=== PATIENT | male | born 1980 | race Two or more races ===

== ENCOUNTER 2017-06-04 18:13 | Emergency (ER) | payer BC ==
--- NOTE | 2017-06-04 21:12 | EDM.PDOC ---
ED HPI GENERAL MEDICAL PROBLEM - General Chief Complaint: Gastrointestinal Problem Stated Complaint: CHEST PAIN Time Seen by Provider: 06/04/17 20:06 Source of Information: Reports: Patient, Family History Limitations: Reports: No Limitations - History of Present Illness INITIAL COMMENTS - FREE TEXT/NARRATIVE: Is a 36-year-old male. Yesterday morning started having a coughing and was productive with some mild throat pain. The coughing causes stomach to bother him and some mild chest tightness or soreness with a cough. He also developed diarrhea a few days ago and some nausea but he's had no vomiting. He has not documented a fever but he says he has chills last night. He also complains of bilateral ears hurting him and some sinus congestion as well. Frequently he gets sinus infections that require antibiotics. He denies any abdominal cramps. Chest Pain Score (Numeric/FACES): 4 - Related Data Allergies Allergy/AdvReac Type Severity Reaction Status Date / Time No Known Allergies Allergy Verified 06/04/17 18:48 Home Meds: Home Meds Amoxicillin/Potassium Clav [Augmentin 875-125 Tablet] 1 each PO BID #14 tablet 06/04/17 [Rx] Past Medical History - Past Health History Medical/Surgical History: Denies Medical/Surgical History Social & Family History - Tobacco Use Smoking Status *Q: Current Every Day Smoker Years of Tobacco use: 2 Packs/Tins Daily: 0.2 - Caffeine Use Caffeine Use: Reports: Coffee - Recreational Drug Use Recreational Drug Use: No ED ROS ENT - Review of Systems Review Of Systems: See Below Constitutional: Reports: Chills. Denies: Fever HEENT: Reports: Other (As per history of present illness) Respiratory: Reports: Cough Cardiovascular: Reports: No Symptoms Endocrine: Reports: No Symptoms GI/Abdominal: Reports: Other (Abdominal soreness) : Reports: No Symptoms Musculoskeletal: Reports: No Symptoms Skin: Reports: No Symptoms Neurological: Reports: No Symptoms Psychiatric: Reports: No Symptoms Hematologic/Lymphatic: Reports: No Symptoms ED EXAM, ENT - Physical Exam Exam: See Below Exam Limited By: No Limitations General Appearance: Alert, WD/WN, No Apparent Distress Eye Exam: Bilateral Eye: Normal Inspection Ears: Normal External Exam, Normal Canal, Normal TMs Nose: Normal Inspection Mouth/Throat: Normal Inspection, Pharyngeal Erythema. No: Tonsillar Exudates Head: Normocephalic, Other (He complains of sinus drainage and sinus tenderness in the maxillary sinuses) Neck: Supple Respiratory/Chest: No Respiratory Distress, Lungs Clear, Normal Breath Sounds Cardiovascular: Regular Rate, Rhythm, No Murmur GI/Abdominal: Soft, Other (Minimal tenderness in the upper abdomen muscles) Back: Full Range of Motion Extremities: Normal Inspection, Normal Range of Motion Neurological: Alert, Oriented Psychiatric: Normal Affect, Normal Mood Skin: Warm, Dry Course - Vital Signs Last Recorded V/S: Last Vital Signs Temp 98.2 F 06/04/17 18:41 Pulse 89 06/04/17 18:41 Resp 12 06/04/17 18:41 BP 149/70 H 06/04/17 18:41 Pulse Ox 98 06/04/17 18:41 - Orders/Labs/Meds Orders: Active Orders 24 hr Category Date Time Status CULTURE STREP A CONFIRMATION [] Stat Lab 06/04/17 19:45 Results Rapid Strep w/culture conf [STREP SCRN A RAPID W CULT Lab 06/04/17 19:45 Results CONF] [] Stat - Re-Assessments/Exams Free Text/Narrative Re-Assessment/Exam: 06/05/17 06:35 Spoke to the patient regarding the strep test that was negative Departure - Departure Time of Disposition: 21:10 Disposition: Home, Self-Care 01 Condition: Good Clinical Impression: Acute sinusitis Qualifiers: Sinusitis location: unspecified location Recurrence: non-recurrent Qualified Code(s): J01.90 - Acute sinusitis, unspecified Acute bronchitis Qualifiers: Bronchitis organism: unspecified organism Qualified Code(s): J20.9 - Acute bronchitis, unspecified - Discharge Information Prescriptions: Amoxicillin/Potassium Clav [Augmentin 875-125 Tablet] 1 each PO BID #14 tablet Instructions: Sinusitis, Adult, [id number], Acute Bronchitis, [id number] Referrals: PCP,None [Primary Care Provider] - Forms: ED Department Discharge Additional Instructions: Continue to have increased fluids, if you want something to eat that is okay but avoid hard to digest foods, take the antibiotics faithfully until they're finished, consider using a decongestant such as Brenda or Claritin to help with the sinus congestion, follow-up with your family physician later this week for recheck, Tylenol or ibuprofen as needed for fever, return to the ER if needed - My Orders Last 24 Hours: My Active Orders 06/04/17 19:45 CULTURE STREP A CONFIRMATION [] Stat Rapid Strep w/culture conf [STREP SCRN A RAPID W CULT CONF] [] Stat - Assessment/Plan Last 24 Hours: My Active Orders 06/04/17 19:45 CULTURE STREP A CONFIRMATION [RM] Stat Rapid Strep w/culture conf [STREP SCRN A RAPID W CULT CONF] [] Stat
== END 2017-06-04 21:30 | disposition home or self-care (01) ==
LOC: JD.ED 18:13
DX: J20.9 Acute bronchitis, unspecified (principal); J01.90 Acute sinusitis, unspecified; F17.210 Nicotine dependence, cigarettes, uncomplicated
CPT/HCPCS: 87081; 87430; 99283; 99284